=== PATIENT | female | born 1950 | race Caucasian/White ===

== ENCOUNTER → 2016-08-04 | Outpatient (CLI) | payer OTHER ==
[~2016-08-04] MED LIST: CHANTIX PO; CIPRO PO; NAPROXEN PO; PROTONIX PO; VIT B-12 IJ; [UNRECOGNIZED DRUG - OTHER]
--- NOTE | ~2016-08-04 | CR63 ---
[facility] A Service of [facility] & [facility] RADIOLOGY TEXT RESULTS PATIENT: DANAE DELACRUZ LOCATION: [facility] : 54 UNIT #: [id number] AGE: [address]: MIGUEL REDDY PA-C SEX: F ORDER DR: [id number] [facility] [address] [place], [place] [address] [id number] O MR#: [id number] Acc #: [id number] NAME: DANAE DELACRUZ : 1950 SEX: F STUDY DATE/TIME: 08/04/2016 10:42 UNIT: [facility] ROOM: STUDY DESCRIPTION: CR Chest 2 View Attending Physician: Miguel Reddy Ordering Physician: Andrea Rojas M.D. Primary Care Physician: Madison Arellano M.D. MEDICAL IMAGING REPORT This report is preliminary unless electronic signature is present EXAM Chest PA and lateral 08/04/2016 HISTORY Shortness of breath today. Smoking history for 40 years with COPD exacerbation. Chronic gastritis and gastroesophageal reflux disease. FINDINGS The heart is normal in size. The lungs are clear. There are no pleural effusions. IMPRESSION No active pulmonary disease. Dictated by... Stanley Vallecillo M.D. THIS IS AN ELECTRONICALLY VERIFIED REPORT Stanley Vallecillo M.D. at 08/05/2016 8:07 AM ARPITA/simona TD: 08/04/2016 18:55 JOB #: [id number] MEDICAL IMAGING REPORT COPY
== END | disposition home or self-care (01) ==
LOC: CRAD 10:14
DX: K50.00 Crohn's disease of small intestine without complications (principal); K29.50 Unspecified chronic gastritis without bleeding; E53.8 Deficiency of other specified B group vitamins; K21.0 Gastro-esophageal reflux disease with esophagitis; K44.9 Diaphragmatic hernia without obstruction or gangrene; K22.2 Esophageal obstruction; Z86.010 Personal history of colon polyps; Z92.25 Personal history of immunosuppression therapy
CPT/HCPCS: 71020

== ENCOUNTER → 2016-08-18 | Outpatient (CLI) | payer OTHER ==
--- NOTE | ~2016-08-18 | CR176 ---
[facility] A Service of [facility] RADIOLOGY TEXT RESULTS PATIENT: DANAE DELACRUZ LOCATION: [facility] : 54 UNIT #: [id number] AGE: [address]: LISSA KENNEDY APRN SEX: F ORDER DR: [id number] [facility] [address] [place], [place] [address] [id number] O MR#: [id number] Acc #: [id number] NAME: DANAE DELACRUZ : 1950 SEX: F STUDY DATE/TIME: 08/18/2016 16:49 UNIT: [facility] ROOM: STUDY DESCRIPTION: CR Knee Comp 4 + Views Rt Attending Physician: Lissa Kennedy Np Referring Physician: Lissa Kennedy Np Ordering Physician: Lissa Kennedy Np Primary Care Physician: Madison Arellano M.D. MEDICAL IMAGING REPORT This report is preliminary unless electronic signature is present EXAM Right knee INDICATION Right knee pain. Swelling. FINDINGS 4 views of the right knee without comparison. There is a fracture through the inferior one-third of the patella. This is nondisplaced. There is a small knee effusion. IMPRESSION 1. Transverse fracture through the inferior patella. 2. Right knee effusion. Dictated by... Dwayne Benavidez M.D. THIS IS AN ELECTRONICALLY VERIFIED REPORT Dwayne Benavidez M.D. at 08/19/2016 10:28 AM Delfino TD: 08/19/2016 08:42 JOB #: [id number] MEDICAL IMAGING REPORT COPY
== END | disposition home or self-care (01) ==
LOC: CRAD 16:08
DX: M25.561 Pain in right knee (principal); S82.031A Displaced transverse fracture of right patella, initial encounter for closed fracture; M25.461 Effusion, right knee
CPT/HCPCS: 73564